=== PATIENT | female | born 1995 | race Caucasian/White ===

== ENCOUNTER → 2018-05-21 08:50 | Outpatient (CLI) | payer BC, SELFPAY | PROVIDERS: PCP Family Medicine; Visit Provider Internal Medicine | DX: R07.89 Other chest pain (principal); R94.31 Abnormal electrocardiogram [ECG] [EKG]; E66.9 Obesity, unspecified; K21.9 Gastro-esophageal reflux disease without esophagitis; R06.4 Hyperventilation; R55 Syncope and collapse; R60.9 Edema, unspecified | CPT/HCPCS: 93017; 93306 ==

== ENCOUNTER → 2019-06-24 13:10 | Outpatient (CLI) | payer BC, SELFPAY ==
--- NOTE | 2019-06-24 13:14 | CT_ITS ---
PROCEDURE: CT CHEST W CON CLINICAL HISTORY: left thorac abdominal lipoma COMPARISON: [facility] CT CHEST W/O CONTRAST from 08/06/2015 TECHNIQUE: Axial images obtained with sagittal and coronal reformats. All CT scans at the facility use one or more dose reduction, viz: automated exposure control, ma/kV adjustment per patient size (including targeted exams where dose is matched to indication, i.e. head), or iterative reconstruction technique. FINDINGS: There is a benign right upper lobe calcified granuloma. Remainder of the lung silva are clear. Airway structures are patent. Heart size is normal. Mediastinal and hilar areas are normal. Thoracic aorta is unremarkable. The visualized upper abdominal structures are normal. There is no acute osseous process. No definite extrathoracic well-defined lipoma. IMPRESSION: No acute process. Extra thoracic lipoma is not visualized. Dictated by: Rajiv Reeves 06/24/2019 14:33 Electronically signed by Rajiv Reeves in 06/24/2019 14:33
== END ==
PROVIDERS: PCP Family Medicine; Visit Provider Surgery
DX: D17.9 Benign lipomatous neoplasm, unspecified (principal)
CPT/HCPCS: 71260; Q9967

== ENCOUNTER 2020-04-14 20:04 | Emergency (ER) | payer BC, SELFPAY ==
[2020-04-14 20:14] VITALS: BP 136/78; PULSE 74; RESP 19; TEMP 36.6; O2SAT 98; BMI 48.2
--- NOTE | 2020-04-14 20:32 | HMH.EDUTC ---
[facility] [place] Disposition Clinical Impression: Close exposure to COVID-19 virus, Encounter for laboratory testing for COVID-19 virus Disposition: Home, Self-Care Condition on Discharge: Good Instructions: Preventing the Spread of Coronavirus Discharge Instructions Additional Instructions: *Monitor Temp, Over the counter Motrin or Tylenol as directed/as needed Tylenol every 4 hours and Motrin every 6 hours (as long as your family doctor has told you that you can take it) for fever or pain. and straight to ER if unable to lower temp less than 101.0 after medication given *Warm salt water gargles may help to soothe the throat *Throat Lozenges *Warm fluids like tea with honey may help to soothe the throat *Sleep elevated *Humidifier/Vaporizer Follow up IMMEDIATELY for new or worsening symptoms or no Noticeable improvement over the next 48-72 hours. 911 for difficulty breathing or swallowing You was tested for today for COVID19 your test result should be back later tomorrow morning you may call back to the [facility] after 9am tomorrow morning to see if your test results are back and the result You was given a handout with instructions for Self Quarantine and Self isolation for while you wait on test results and what to do if they are positive Referrals: Gray Osman MD [Primary Care Provider] - As needed Forms: Work/School Release Time of Disposition: 20:37 Medical Decision Making - José Luis Inquiry Pt receiving controlled substance: No José Luis was queried for this patient: No Vital Signs: 04/14/20 20:14 Temperature 97.8 F Temperature Source Oral Pulse Rate [Right Brachial] 74 Respiratory Rate 19 Blood Pressure [Right Arm] 136/78 Blood Pressure Mean [Right Arm] 97 Blood Pressure Source [Right Arm] Automatic Cuff Blood Pressure Position [Right Arm] Sitting 02 Sat by Pulse Oximetry 98 Oxygen Delivery Method Room Air Orders (Tests/Meds): ORDERS Category Date Time Status Covid-19 Nasal PCR ([facility]) Routine Lab 04/14/20 20:00 Received [facility] [place] HPI - General Stated complaint: wANT cov tEST Time Seen by Provider: 04/14/20 20:30 Mode of Arrival: Ambulatory Source of Information: Patient Limitations: No Limitations Description of Symptoms (Recalled from Triage Doc. by RN): PATIENT REQUESTING COVID TEST D/T EXPOSURE. 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 and worried that she may have contracted COVID - Related Data Previous Rx's Medication Instructions Recorded norgestimate 0.25 mg-ethinyl 1 tab PO DAILY #28 tab 07/17/19 estradiol 35 mcg tablet Azithromycin 500 mg PO DAILY 3 Days #3 tab 07/25/19 Allergies Allergy/AdvReac Type Severity Reaction Status Date / Time albuterol Allergy Intermediate FACIAL RASH Verified 07/17/19 14:10 - Worker's Comp Is this a Worker's Comp case?: No [facility] History - Hepatitis A Screen Drug use history?: No High risk sexual behaviors?: No History of sexually transmitted infection?: No Currently employed?: No Childcare worker?: No Do you have indoor plumbing?: Yes Do you have electricity?: Yes Attestation statement:: This patient has been screened for Hepatitis A risk factors. I have reviewed the patient's past medical history: Yes Medical History: Reports:: Gastroesophageal Reflux Disease(GERD) Other Surgeries: Yes: Other Amputation: No Fractures: Yes (BOTH ANKLES) Comment: excision of abdominal lipoma - Social History Smoking Status: Never smoker Alcohol Intake: never
[2020-04-14 20:45] VITALS: BP 136/78; PULSE 74; RESP 19; TEMP 36.6; O2SAT 98
== END 2020-04-14 20:47 | disposition home or self-care (01) ==
PROVIDERS: Emergency Provider Nurse Practitioner; PCP Family Medicine
DX: Z20.828 Contact with and (suspected) exposure to other viral communicable diseases (principal); K21.9 Gastro-esophageal reflux disease without esophagitis
CPT/HCPCS: 99201; U0003

== ENCOUNTER 2020-04-28 22:23 | Emergency (ER) | payer BC, SELFPAY ==
[2020-04-28 22:24] VITALS: BP 125/85; PULSE 77; RESP 16; TEMP 36.8; O2SAT 100; BMI 41.3
--- NOTE | 2020-04-28 22:52 | XR_ITS ---
PROCEDURE: XR FOOT LT MIN 3V CLINICAL INDICATION: foot pain COMPARISON: No exams were available for comparison FINDINGS: No fracture or dislocation. No lytic or blastic change. There is normal mineralization. The joint spaces are well-preserved. No significant degenerative/arthritic changes. No erosive changes evident. Other findings:None. IMPRESSION: No acute findings. Dictated by: Dr. Serafin Negron MD 04/29/2020 07:44 Dr. Serafin Negron MD in [place] 04/29/2020 07:44
--- NOTE | 2020-04-28 22:55 | HMH.EDLOEX ---
ED Disposition Clinical Impression: Foot injury Qualifiers: Encounter type: initial encounter Laterality: left Qualified Code(s): S99.922A - Unspecified injury of left foot, initial encounter Disposition: Home, Self-Care Condition on Discharge: Good Instructions: DI for Foot Sprain Additional Instructions: advil/tyenol and see pcp and dr johnson for follow up Referrals: Gary Osman MD [Primary Care Provider] - Geena Johnson DPM [Staff Physician] - - Critical Care Critical Care Time: No Attestation: On 04/28/20, the high probability of a clinically significant, sudden or life threatening deterioration of the following system(s) required my full and direct attention, intervention and personal management. The time I documented below is in addition to time spent performing reported procedures but includes the following listed in this critical care notation. Medical Decision Making - Medical Records Medical records reviewed: Yes: I reviewed the patient's medical records. - José Luis Inquiry Pt receiving controlled substance: No Vital Signs: 04/28/20 22:24 Temperature 98.3 F Temperature Source Oral Pulse Rate [Right Radial] 77 Respiratory Rate 16 Blood Pressure [Right Arm] 125/85 Blood Pressure Mean [Right Arm] 98 Blood Pressure Source [Right Arm] Automatic Cuff Blood Pressure Position [Right Arm] Sitting 02 Sat by Pulse Oximetry 100 Oxygen Delivery Method Room Air Orders (Tests/Meds): ED MEDICATIONS Discontinued Medications Generic Name Dose Route Start Last Admin Trade Name Freq PRN Reason Stop Dose Admin Acetaminophen 1,000 mg 04/28/20 23:02 Acetaminophen 500mg Tab PO 04/28/20 23:03 ONCE ONE ORDERS Category Date Time Status XR foot LT min 3V Stat Exams 04/28/20 22:52 Taken - Radiology Data #1 Image(s): Foot/Toes Image Reviewed: Yes I reviewed the patient's radiology image Preliminary Findings: No Fracture Seen Lower Extremity Injury HPI - General Chief Complaint: Extremity Injury, Lower Stated Complaint: AO 04/26/20 Twisted l foot, fell in hole Time Seen by Provider: 04/28/20 22:55 Mode of Arrival: Ambulatory Source of Information: Patient, Significant Other, Medical Record Limitations: No Limitations Description of Symptoms (Recalled from ER Triage Doc. by RN): Pt c/o pain in left foot. Pt sttes she fell in a hile monday and twisted my ankle. Pt came in tonight because she noticed her foot bruising. Left foot has positive pulse=motor sensation, god cap refill. - History of Present Illness HPI Narrative: acute lt foot injury with sts and ecchymosis and pain with wt bearing MD complaint: foot injury Onset (ago): day(s) Injury: Left: foot Type of Injury: eversion Place: home Severity: moderate Exacerbating factors: weight bearing Context: fall Associated symptoms: able to partially bear weight - Related Data Home Medications Medication Instructions Recorded Confirmed No Known Home Medications 04/28/20 04/28/20 Allergies Allergy/AdvReac Type Severity Reaction Status Date / Time albuterol Allergy Intermediate FACIAL RASH Verified 07/17/19 14:10 [facility] History - Hepatitis A Screen Drug use history?: No High risk sexual behaviors?: No History of sexually transmitted infection?: No Currently employed?: No Childcare worker?: No Do you have indoor plumbing?: Yes Do you have electricity?: Yes Attestation statement:: This patient has been screened for Hepatitis A risk factors. I have reviewed the patient's past medical history: Yes Medical History: Reports:: Gastroesophageal Reflux Disease(GERD) Other Surgeries: Yes: Other Amputation: No Fractures: Yes (BOTH ANKLES) Comment: excision of abdominal lipoma - Social History Smoking Status: Never smoker Alcohol Intake: never Substance Use Type: denies use Occupational Status: other Housing: house Family Hx:: Coronary Artery Disease Comment: Maternal Grandmother NIKKI Obtained: Kraig
[2020-04-28 23:00] VITALS: BP 132/84; PULSE 68; RESP 17; O2SAT 99
[2020-04-28 23:24] VITALS: BP 132/74; PULSE 73; RESP 16; TEMP 36.6; O2SAT 99
== END 2020-04-28 23:27 | disposition home or self-care (01) ==
PROVIDERS: Emergency Provider Emergency Medicine; PCP Family Medicine
DX: S93.402A Sprain of unspecified ligament of left ankle, initial encounter (principal); W17.2XXA Fall into hole, initial encounter; Y92.89 Other specified places as the place of occurrence of the external cause; K21.9 Gastro-esophageal reflux disease without esophagitis
CPT/HCPCS: 73630; 99282

== ENCOUNTER 2020-06-11 16:09 | Emergency (ER) | payer BC, SELFPAY ==
[2020-06-11 17:00] VITALS: BP 136/76; PULSE 69; RESP 16; TEMP 37.1; O2SAT 98; BMI 44.7
--- NOTE | 2020-06-11 17:14 | HMH.EDUTC ---
[facility] [place] Clinical Impression: Exposure to COVID-19 virus Disposition: Home, Self-Care Condition on Discharge: Good Instructions: Preventing the Spread of Coronavirus Discharge Instructions Additional Instructions: Drink plenty of fluids. Take tylenol for pain or fever. Return if you begin to have difficulty breathing. Follow up with your regular doctor. GO TO THE ER FOR ANY WORSENING SYMPTOMS Referrals: Gary Osman MD [Primary Care Provider] - Time of Disposition: 17:16 Medical Decision Making - Medical Records Medical records reviewed: No: I reviewed the patient's medical records. - José Luis Inquiry Pt receiving controlled substance: No Orders (Tests/Meds): ORDERS Category Date Time Status Covid-19 Nasal PCR Sendout Andrew Routine Lab 06/11/20 16:44 Ordered [facility] [place]PI - General Stated complaint: covid test Time Seen by Provider: 06/11/20 17:14 - History of Present Illness Provider Complaint: She states that she was exposed to covid earlier this week. She denies any symptoms. - Related Data Previous Rx's Medication Instructions Recorded diclofenac sodium 1 % topical gel 4 g TOPICAL QID PRN 30 Days #100 g 05/12/20 Allergies Allergy/AdvReac Type Severity Reaction Status Date / Time albuterol Allergy Intermediate FACIAL RASH Verified 06/09/20 14:39 [facility] History - Hepatitis A Screen Attestation statement:: This patient has been screened for Hepatitis A risk factors. I have reviewed the patient's past medical history: Yes Medical History: Reports:: Gastroesophageal Reflux Disease(GERD) Denies:: Cancer, Diabetes Mellitus Type 1, Diabetes Mellitus Type 2, MRSA Other Surgeries: Yes: Other Amputation: No Fractures: Yes (BOTH ANKLES) Comment: excision of abdominal lipoma. all 4 wisdom teeth removed. - Social History Smoking Status: Never smoker Alcohol Intake: never Substance Use Type: denies use Occupational Status: employed Housing: house Family Hx:: Coronary Artery Disease Comment: Maternal Grandmother ROS Obtained: Yes All systems reviewed & no additional complaints - Constitutional Constitutional: Reports system reviewed and no additional complaints, except as docu - Eyes Eyes: Reports system reviewed and no additional complaints, except as docu - ENT Ears, Nose, Mouth, and Throat: Reports system reviewed and no additional complaints, except as docu - Cardiovascular Cardiovascular: Reports system reviewed and no additional complaints, except as docu - Respiratory Respiratory: Yes system reviewed and no additional complaints, except as docu - Gastrointestinal Gastrointestingal: Reports: system reviewed and no additional complaints, except as docu Physical Exam - General General appearance: alert, in no apparent distress - Head Head exam: atraumatic, normocephalic, normal inspection - Eye Eye exam: Present: normal appearance, PERRL, EOMI - ENT ENT exam: Present: normal exam, normal oropharynx, mucous membranes moist, TM's normal bilaterally, normal external ear exam - Neck Neck exam: Present: normal inspection, full ROM, trachea midline. Absent: meningismus, lymphadenopathy - Chest Chest inspection: Present: normal inspection, symmetric chest wall rise. Absent: tenderness - Respiratory Respiratory exam: Present: normal lung sounds bilaterally. Absent: respiratory distress - Cardiovascular Cardiovascular exam: Present: regular rate, normal rhythm. Absent: JVD - Abdominal Exam Abdominal exam: Present: soft, normal bowel sounds. Absent: distention, tenderness, guarding - Extremities Exam Extremities exam: Present: normal inspection, full ROM, normal capillary refill. Absent: calf tenderness - Back Exam Back exam: Present: normal inspection. Absent: tenderness - Neurological Exam Neurological exam: Present: alert, oriented X3 - Psychiatric Psychiatric exam: Present: normal affect, normal mood - Skin Skin ex
[2020-06-11 17:22] VITALS: BP 136/76; PULSE 69; RESP 16; TEMP 37.1; O2SAT 98
[2020-06-13 11:26] LABS: Covid-19 Nasal PCR Sendout Lex Not Detected
== END 2020-06-11 17:25 | disposition home or self-care (01) ==
PROVIDERS: Emergency Provider Nurse Practitioner Family; PCP Family Medicine
DX: Z20.828 Contact with and (suspected) exposure to other viral communicable diseases (principal); K21.9 Gastro-esophageal reflux disease without esophagitis
CPT/HCPCS: 99201; U0004

== ENCOUNTER 2021-06-27 17:07 | Emergency (ER) | payer BC, SELFPAY ==
[2021-06-27 17:09] VITALS: BP 145/98; PULSE 82; RESP 16; TEMP 36.9; O2SAT 100; BMI 41.3
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
--- NOTE | 2021-06-27 17:31 | HMH.EDGENADL ---
ED Disposition Clinical Impression: Tendinopathy of left rotator cuff Disposition: Home, Self-Care Condition on Discharge: Fair Referrals: Gary Osman MD [Primary Care Provider] - - Critical Care Critical Care Time: No Attestation: On 06/27/21, the high probability of a clinically significant, sudden or life threatening deterioration of the following system(s) required my full and direct attention, intervention and personal management. The time I documented below is in addition to time spent performing reported procedures but includes the following listed in this critical care notation. Medical Decision Making - Medical Records Medical records reviewed: Yes: I reviewed the patient's medical records. - José Luis Inquiry Pt receiving controlled substance: No José Luis was queried for this patient: No Vital Signs: 06/27/21 17:09 Temperature 98.5 F Temperature Source Oral Pulse Rate [Right] 82 Respiratory Rate 16 Blood Pressure [Right Arm] 145/98 H Blood Pressure Mean [Right Arm] 113 Blood Pressure Source [Right Arm] Automatic Cuff Blood Pressure Position [Right Arm] Sitting 02 Sat by Pulse Oximetry 100 Oxygen Delivery Method Room Air - Lab Data Lab results reviewed: Yes: I reviewed the patient's lab results. Medical Decision Narrative: Patient is a 25-year-old female with no past medical history presenting to the ED for left shoulder pain. Patient is awake, alert, not in acute distress. Is hemodynamically stable, afebrile. Patient's physical exam is remarkable for tenderness to palpation of the left shoulder down to the left elbow. Patient is unable to externally rotate, AB duct without significant tenderness, does not have any overlying erythema, does not have any warmth to touch. Differential includes but is not limited to acute fractures, dislocations, ligament injury, tendon injury, low concern for a septic joint. Given this x-rays of patient's left upper extremity were performed. X-rays unremarkable for a rotator cuff tendinopathy. Patient is written for oxygen. Patient is told to follow-up with physical therapy for physical therapy. Given strict return precautions and follow-up instructions with orthopedic surgery. General Adult HPI - General Stated complaint: L arm/shoulder pain x 1 week Time Seen by Provider: 06/27/21 17:31 - History of Present Illness HPI narrative: Patient is a 25-year-old female with no past medical history presenting to the ED with a left-sided shoulder pain. Patient states that approximately a week ago when she was at work she felt like she injured her shoulder. Patient states that after this injury patient was having trouble lifting her left shoulder above her head and was in severe pain. Patient states that she used [id number] medications to help with the pain. Patient states that yesterday she reinjured her shoulder and now cannot move her shoulder at all. Patient states that she is having trouble in her shoulder at all. She denies any numbness, weakness of the shoulder. Denies any other injuries at the moment. - Related Data Previous Rx's Medication Instructions Recorded diclofenac sodium 1 % topical gel 4 g TOPICAL QID PRN 30 Days #100 g 05/12/20 Allergies Allergy/AdvReac Type Severity Reaction Status Date / Time albuterol Allergy Intermediate FACIAL RASH Verified 06/09/20 14:39 [facility] History - Hepatitis A Screen Attestation statement:: This patient has been screened for Hepatitis A risk factors. I have reviewed the patient's past medical history: Yes Medical History: Reports:: Gastroesophageal Reflux Disease(GERD) Denies:: Cancer, Diabetes Mellitus Type 1, Diabetes Mellitus Type 2, MRSA Other Surgeries: Yes: Other Amputation: No Fractures: Yes (BOTH ANKLES) Comment: excision of abdominal lipoma. all 4 wisdom teeth removed. - Social History Smoking Status: Never smoker Alcohol Intake: never Substance Use Type: denies use Occupati
[2021-06-27 19:00] VITALS: BP 125/97; PULSE 80; RESP 18; TEMP 37; O2SAT 98
== END 2021-06-27 19:00 | disposition home or self-care (01) ==
PROVIDERS: Emergency Provider Emergency Medicine; PCP Family Medicine
DX: M67.912 Unspecified disorder of synovium and tendon, left shoulder (principal); K21.9 Gastro-esophageal reflux disease without esophagitis
CPT/HCPCS: 73010; 73030; 73060; 73070; 99282

== ENCOUNTER → 2021-08-09 10:31 | Outpatient (CLI) | payer BC, SELFPAY ==
--- NOTE | 2021-08-09 10:31 | MR_ITS ---
FINAL REPORT CLINICAL HISTORY: possible rotator cuff tear. SHOULDER PAIN X1.5MONTHS. LIMITED ROM. WEAKNESS IN ARM. FINDINGS: Multiplanar MR imaging of the left shoulder was performed without contrast. There are low signal foci the distal supraspinatus and infraspinatus tendons which may represent calcific tendinitis. There is no tendon tear. The a.c. joint is intact. No abnormal fluid is seen in the subacromial/subdeltoid bursa. The glenoid labrum is intact. The long head of the biceps tendon is intact. No significant glenohumeral joint effusion is seen. There is no evidence of fracture or dislocation. The musculature is intact. There is no evidence of soft tissue mass. IMPRESSION: Low signal foci in the distal supraspinatus and infraspinatus tendons which may represent calcific tendinitis. Findings could be correlated with x-ray or CT. Reviewed, Interpreted and Dictated by Howie Ho III, MD Transcribed by Nerissa Irby Authenticated by Howie Ho III, MD on 08/09/2021 01:07:[address] [facility]
== END ==
PROVIDERS: PCP Family Medicine; Visit Provider Orthopaedic Surgery
DX: S46.002A Unspecified injury of muscle(s) and tendon(s) of the rotator cuff of left shoulder, initial encounter (principal)
CPT/HCPCS: 73221

== ENCOUNTER 2022-02-01 17:46 | Emergency (ER) | payer BC, SELFPAY ==
[2022-02-01 17:59] VITALS: BP 130/75; PULSE 80; RESP 16; TEMP 37; O2SAT 98; BMI 42.5
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
[2022-02-01 18:14] LABS: Microscopic, Urine URINE MICROSCOPIC (MICROSCOPIC)
[2022-02-01 18:17] LABS: Appearance,Urine CLEAR (Clear); Bilirubin,Urine Negative (Negative); Blood, Urine Negative (Negative); Color,Urine YELLOW (Yellow); Glucose,Urine (UA) Negative (Negative); Ketones,Urine Negative (Negative); Leukocyte Esterase,Urine Negative (Negative); Nitrate,Urine Negative (Negative); PH,Urine 6.5 (5.0-8.5); Protein,Urine Negative (Negative); Specific Gravity, Urine 1.025 (1.005-1.030); Urobilinogen,Urine 0.2 EU/dl (0.2)
[2022-02-01 18:29] LABS: Urine Pregnancy, HCG Qual. Negative (Negative)
[2022-02-01 18:35] LABS: Bacteria,Urine 4+ /lpf
--- NOTE | 2022-02-01 19:02 | PC.NURSE ---
family at bedside siderails up x 2
[2022-02-01 19:38] VITALS: BP 125/72; PULSE 78; RESP 18; TEMP 36.8; O2SAT 99
== END 2022-02-01 19:44 | disposition home or self-care (01) ==
PROVIDERS: Emergency Provider Emergency Medicine; PCP Family Medicine
DX: S46.912A Strain of unspecified muscle, fascia and tendon at shoulder and upper arm level, left arm, initial encounter (principal); S00.83XA Contusion of other part of head, initial encounter; S16.1XXA Strain of muscle, fascia and tendon at neck level, initial encounter; V43.53XA Car driver injured in collision with pick-up truck in traffic accident, initial encounter; Z88.8 Allergy status to other drugs, medicaments and biological substances; K21.9 Gastro-esophageal reflux disease without esophagitis
CPT/HCPCS: 70450; 72125; 73030; 81001; 81025; 87086; 99285

== ENCOUNTER → 2022-10-31 13:59 | Outpatient (CLI) | payer BC, OTHER, SELFPAY ==
--- NOTE | 2022-10-31 14:01 | US_ITS ---
FINAL REPORT CLINICAL HISTORY: pcos FINDINGS: Sonographic images of the pelvis were obtained. The uterus is retroverted and measures 3.6 x 3.8 x 6.1 cm. The endometrium measures 12 mm, which is within normal limits. No uterine mass is identified. The right ovary measures 3.4 cm in length and the left ovary is not visualized. Normal blood flow seen to the ovaries. There is a dominant cyst or follicle in the right ovary measuring 2.4 x 2.1 cm. There is no evidence of free fluid. IMPRESSION: Right ovarian cyst. Left ovary not visualized. Reviewed, Interpreted and Dictated by Jaspreet Ashford MD Transcribed by Chelsea Rodriguez Authenticated and [facility]
== END ==
LOC: RAD 14:01
PROVIDERS: PCP Family Medicine; Visit Provider Obstetrics & Gynecology
DX: E28.2 Polycystic ovarian syndrome (principal)
CPT/HCPCS: 76830

== ENCOUNTER → 2022-11-16 07:50 | Outpatient (CLI) | payer BC, OTHER, SELFPAY ==
[2022-11-16 08:13] LABS: Basophils % 0.3 % (0.1-2.0); Eosinophils # 0.1 K/mm3 (0.0-0.4); Eosinophils % 1.4 % (0.1-12.0); Lymphocytes # 1.8 K/mm3 (0.7-4.5); Lymphocytes % 27.6 % (10-50); Mean Corpuscular HGB Conc 32.6 g/dL (31.8-35.4); Mean Corpuscular Hemoglobin 28.8 pg (27.0-31.2); Mean Corpuscular Volume 88.2 fl (81-99); Mean Platelet Volume 9.4 fl (7.4-10.4); Monocytes # 0.4 K/mm3 (0.1-1.0); Monocytes % 5.6 % (1.7-9.3); Neutrophils # 4.1 K/mm3 (1.8-7.8); Platelet Count 241 K/mm3 (142-424); Red Blood Count 4.53 M/mm3 (4.20-5.40); Red Cell Distribution Width 13.2 % (11.5-17.5); White Blood Count 6.4 K/mm3 (4.8-10.8)
[2022-11-16 08:53] LABS: Alanine Aminotransferase 23 U/L (12-78); Albumin Level 4.1 g/dl (3.5-5.0); Albumin/Globulin Ratio 1.7 (1.1-1.8); Alkaline Phosphatase 70 U/L (38-126); Anion Gap 14.7 mEq/L (5-15); Aspartate Amino Transferase 23 U/L (14-36); Bilirubin,Total 0.4 mg/dl (0.2-1.3); Blood Urea Nitrogen 6 mg/dl (7-17); Calcium 8.9 mg/dl (8.4-10.2); Carbon Dioxide 26 mmol/L (22.0-30.0); Chloride 102 mmol/L (98-107); Estimated Glomerular Filt Rate 150 ml/min (>60); GFR (African American) 182 ML/MIN (>60); Globulin 2.4 g/dL (1.3-3.2); Glucose 89 mg/dl (74-100); Glucose,Fasting 89 mg/dl (74-100); Potassium 3.7 mmoL/L (3.5-5.1); Sodium 139 mmol/L (136-145); Total Protein,Serum 6.5 g/dl (6.3-8.2)
[2022-11-16 09:07] LABS: Hemoglobin A1C 4.9 % (4.0-6.0)
[2022-11-16 09:55] LABS: Thyroid Stimulating Hormone 3.21 uIU/mL (0.465-4.68)
[2022-11-17 08:33] LABS: Estradiol 33.4 pg/mL (.); FSH 8.4 mIU/mL (.); LH 9.3 mIU/mL (.)
[2022-11-17 15:05] LABS: Insulin Level Total 9.1 uIU/mL (2.6-24.9)
[2022-11-19 18:11] LABS: Testosterone, Total, LC/MS 45 ng/dL (.)
[2022-12-18 16:44] LABS: Anti Mullerian Hormone (AMH) 8.56
== END ==
PROVIDERS: PCP Family Medicine; Visit Provider Obstetrics & Gynecology
DX: E28.2 Polycystic ovarian syndrome (principal)
CPT/HCPCS: 36415; 80053; 82397; 82670; 82947; 83001; 83002; 83036; 83525; 84403; 84443; 85025

== ENCOUNTER 2023-05-02 11:42 | Emergency (ER) | payer BC, OTHER, SELFPAY ==
[2023-05-02] VITALS (12 sets, daily range): BP systolic 111–145; BP diastolic 67–98; PULSE 47–89; RESP 18; TEMP 36.7–36.8; O2SAT 96–100; BMI 41.3
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
[2023-05-02 12:24] LABS: Microscopic, Urine URINE MICROSCOPIC (MICROSCOPIC)
[2023-05-02 12:32] LABS: Appearance,Urine CLEAR (Clear); Bilirubin,Urine Negative (Negative); Blood, Urine Negative (Negative); Color,Urine YELLOW (Yellow); Glucose,Urine (UA) Negative (Negative); Ketones,Urine Negative (Negative); Leukocyte Esterase,Urine Negative (Negative); Nitrate,Urine Negative (Negative); Protein,Urine Negative (Negative); Specific Gravity, Urine 1.025 (1.005-1.030); Urobilinogen,Urine 0.2 EU/dl (0.2)
[2023-05-02 12:41] LABS: Bacteria,Urine Trace /lpf; Squamous Epithelial Cell,Urine Occasional #/hpf (0-5)
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
[2023-05-02 12:47] LABS: Basophils % 0.1 % (0.1-2.0); Eosinophils # 0.1 K/mm3 (0.0-0.4); Eosinophils % 1.5 % (0.1-12.0); Hematocrit 36.2 % (37.0-47.0); Hemoglobin 12.6 g/dL (12.2-16.2); Lymphocytes # 1.4 K/mm3 (0.7-4.5); Lymphocytes % 19.1 % (10-50); Mean Corpuscular HGB Conc 34.9 g/dL (31.8-35.4); Mean Corpuscular Hemoglobin 31.1 pg (27.0-31.2); Mean Corpuscular Volume 89.1 fl (81-99); Mean Platelet Volume 9.2 fl (7.4-10.4); Monocytes # 0.3 K/mm3 (0.1-1.0); Monocytes % 4.7 % (1.7-9.3); Neutrophils # 5.4 K/mm3 (1.8-7.8); Neutrophils % 74.5 % (37.0-80.0); Platelet Count 205 K/mm3 (142-424); Red Blood Count 4.07 M/mm3 (4.20-5.40); Red Cell Distribution Width 13.2 % (11.5-17.5); White Blood Count 7.2 K/mm3 (4.8-10.8)
--- NOTE | 2023-05-02 12:47 | PC.NURSE ---
PVR (POST VOID RESIDUAL) 0 ML, NOTIFIED
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
[2023-05-02 12:55] LABS: Chloride 108 mmol/L (98-107); Potassium 3.8 mmoL/L (3.5-5.1); Sodium 141 mmol/L (136-145)
[2023-05-02 12:58] LABS: Anion Gap 11.8 mEq/L (5-15); Blood Urea Nitrogen 7 mg/dl (7-17); Calcium 8.7 mg/dl (8.4-10.2); Carbon Dioxide 25 mmol/L (22.0-30.0); Creatinine Clearance Estimated 150 mL/min (50-200); Estimated Glomerular Filt Rate 122 ml/min (>60); GFR (African American) 147 ML/MIN (>60); Glucose 112 mg/dl (74-100)
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
[2023-05-02 13:21] LABS: HCG Qualitative, Serum Negative (Negative)
--- NOTE | 2023-05-02 13:23 | PC.NURSE ---
Notified [employer] that pt's hcg has been resulted and may proceed with ct scans. States she will be there to get her shortly.
--- NOTE | 2023-05-02 13:26 | PC.NURSE ---
pt to ct via wheelchair
--- NOTE | 2023-05-02 13:26 | PC.NURSE ---
PT TO CT
--- NOTE | 2023-05-02 13:41 | PC.NURSE ---
PT RETURNED FROM CT, WARM BLANKET PROVIDED
--- NOTE | 2023-05-02 14:31 | PC.NURSE ---
PT RESTING WITHOUT NEEDS AT THIS TIME. CALL LIGHT WITHIN REACH
--- NOTE | 2023-05-02 15:00 | PC.NURSE ---
DR ELLIOTT AT BEDSIDE TO UPDATE PT AND FAMILY
== END 2023-05-02 15:11 | disposition home or self-care (01) ==
PROVIDERS: Emergency Provider Emergency Medicine; PCP Family Medicine
DX: M54.50 Low back pain, unspecified (principal); F17.290 Nicotine dependence, other tobacco product, uncomplicated; V49.20XA Unspecified car occupant injured in collision with unspecified motor vehicles in nontraffic accident, initial encounter
CPT/HCPCS: 72131; 72192; 80048; 81001; 84703; 85025; 96374; 96375; 99285; J0131

== ENCOUNTER 2023-06-22 10:00 | Outpatient (RCR) | payer BC, OTHER, SELFPAY | END 2023-06-22 11:20 | disposition home or self-care (01) | LOC: OT 10:00 | PROVIDERS: PCP Family Medicine; Visit Provider Nurse Practitioner Acute Care | DX: S52.501A Unspecified fracture of the lower end of right radius, initial encounter for closed fracture (principal) | CPT/HCPCS: 97010; 97014; 97035; 97110; 97140; 97164; 97165; G0283 ==

== ENCOUNTER 2023-07-05 08:00 | Outpatient (RCR) | payer BC, OTHER, SELFPAY | END 2023-07-05 09:00 | disposition home or self-care (01) | LOC: PT 08:00 | PROVIDERS: PCP Family Medicine; Visit Provider Nurse Practitioner Acute Care | DX: M25.571 Pain in right ankle and joints of right foot; S82.891A Other fracture of right lower leg, initial encounter for closed fracture | CPT/HCPCS: 97014; 97016; 97110; 97140; 97163; 97164; G0283 ==

== ENCOUNTER 2023-08-02 10:00 | Outpatient (RCR) | payer BC, SELFPAY | END 2023-08-02 11:00 | disposition home or self-care (01) | LOC: PT 10:00 | PROVIDERS: PCP Family Medicine; Visit Provider Neuromusculoskeletal Medicine, Sports Medicine | DX: M25.571 Pain in right ankle and joints of right foot; S82.891A Other fracture of right lower leg, initial encounter for closed fracture | CPT/HCPCS: 97010; 97014; 97110; 97140; 97163; 97164; 97530; G0283 ==